=== PATIENT | female | born 2000 | race Two or more races ===

== ENCOUNTER 2023-08-18 16:29 | Emergency (ER) | payer OTHER ==
[~2023-08-18] VITALS: Ht 175.3 cm; Wt 73.9 kg
[2023-08-18 18:25] LABS: HEMATOCRIT 37.9 % (36.0-45.00); MEAN CELL VOLUME 88.5 fL (80.00-100.00); MEAN CORPUSCULAR HEMOGLOBIN 30.4 pg (27.00-32.0); MEAN CORPUSCULAR HGB CONC 34.4 g/dl (32.0-36.0); PLATELET COUNT 317 K/uL (150-450); RED BLOOD COUNT 4.28 M/uL (4.00-6.00); RED CELL DISTRIBUTION WIDTH 15.8 % (11.5-14.5)
== END 2023-08-18 20:33 | disposition home or self-care (01) ==
LOC: ER 16:30
PROVIDERS: Emergency Medicine
DX: N92.3 Ovulation bleeding (principal)